=== PATIENT | female | born 1960 | race African-American/Black ===

== ENCOUNTER 2017-06-07 09:55 | Emergency (ER) | payer MEDICAID ==
[~2017-06-07] VITALS: Ht 180.3 cm; Wt 93.0 kg
[~2017-06-07 09:55] MED LIST: ALBU18; ALBU18 IN; AMOX250C3; BECL80AE9 INH; FLUT50AE2; MORP1TAB12 PO; NOR10T PO; NOR7.5T; OMEP20TA34; OXYC-589; OXYCONTIN PO; OXYGEN; TAMO10TA; TAMO20TA5
[2017-06-07 10:22] VITALS: BP 147/97
[2017-06-07] MEDS ORDERED: HYDROcodone-ACET 5/325MG TAB PO ONE (11:00)
== END 2017-06-07 12:30 | disposition home or self-care (01) ==
LOC: ER 09:55
DX: H60.91 Unspecified otitis externa, right ear (principal); M25.511 Pain in right shoulder; J44.9 Chronic obstructive pulmonary disease, unspecified; Z85.3 Personal history of malignant neoplasm of breast
CPT/HCPCS: 73030